=== PATIENT | female | born 1995 | race Caucasian/White ===

== ENCOUNTER 2018-06-20 10:39 | Emergency (ER) | payer SELFPAY ==
[2018-06-20 10:45] VITALS: BP 120/89
--- NOTE | 2018-06-20 10:59 | EDPHY ---
General Time Seen by Provider: 06/20/18 10:59 Narrative: CLINICAL IMPRESSION: Retained tampon ASSESSMENT/PLAN: Patient is a 23-year-old female with no significant medical history who presents to the emergency department with a retained tampon. Patient is afebrile, not toxic appearing and in no acute distress. She has had no constitutional symptoms. Her abdomen is soft and nontender to palpation, no evidence of a surgical abdomen. Pelvic exam was performed, tampon retrieved without difficulty. There was no evidence of vaginal trauma, retained foreign body and I do not suspect infectious process, TOA, toxic shock, PID, or other acute life-threatening processes. The patient has no other questions or concerns. She is new to the area and does not have a primary care provider, referral has been provided to her. Return precautions discussed-patient will return for development of fever, abdominal pain, vaginal discharge or for any other concerning symptom. Patient verbalized understanding and she is in agreement with this plan. ED COURSE: 11:10 a.m.: Case discussed with Dr. Liu CHIEF COMPLAINT: Retained tampon HPI: Patient is a 23-year-old female with no significant medical history who presents to the emergency department with complaints of a retained tampon. Patient place a tampon last night before she went to bed, just prior to arrival she tried to retrieve it when the string broke. She spent an hour trying to retrieve the tampon on her own and was unable to do so. She has had no fever, nausea or vomiting. She denies any abdominal pain. She has no other concerns. PAST MEDICAL HISTORY: Denies Pertinent Past Surgical History: Denies Family History: Not contributory Social History: Smokes marijuana, smokes cigarettes, occasional EtOH, denies other illicit drug use. ROS: A full 10 point review of systems was negative except for those mentioned in HPI. PHYSICAL EXAM: General Appearance: Well developed, well nourished and in no acute distress HEENT: TMs are clear bilaterally no perforation or FB, no injection, no evidence of serous or mucopurulent otitis. Oropharynx clear is no erythema or exudates, no tonsillar hypertrophy or asymmetry. Dentition generally poor. Eyes: PERRLA, no acute vision change, nystagmus, swelling, discharge, pain or photosensitivity. Conjunctiva pink, no pallor or injection Neck: Supple, nontender, no lymphadenopathy, no midline pain, FROM, no meningismus. Respiratory: There are no retractions, lungs are clear to auscultation. Cardiac: Regular rate and rhythm, no murmurs or gallops. Gastrointestinal: Abdomen is soft, nontender, bowel sounds normal, no masses/ hernia, no rigidity, guarding or focal peritoneal findings. Genitourinary: Pelvic exam reveals retained tampon. No evidence of vaginal canal trauma or retained foreign body. Cervix is pink and healthy, mild amount of blood in the vaginal canal. There is no friability and no cervical motion tenderness. Jazlyn Michelle RN. Skin: Warm, dry, no rashes, no nodules on palpation. MEDICAL DECISION MAKING: Patient was seen independently. Secondary supervising physician at time of evaluation was Dr. Liu. Diagnosis: Retained tampon. Summary: See Assessment and Plan for summary of ED visit Clinical lab tests: Not applicable. Independent visualization of images, tracing, or specimens: Not applicable. Decision to obtain medical records or history from someone other than the patient: No Review / Summarize previous medical records: None available Discussed patient with another provider: Dr. Liu Patient Progress: Stable, discharged home. - History Smoking Status: Current every day smoker - Objective Vital Signs: Initial Vital Signs Temperature (C) 36.7 C 06/20/18 10:41 Heart Rate 75 06/20/18 10:41 Respiratory Rate 16 06/20/18 10:41 Blood Pressure 120/89 H 06/20/18 10:41 O2 Sat (%) 95 06/20/18 10:41 O2 Delivery Mode Room Air Allergies/Adverse Reactions: No Known Allergies Allergy (Unverified 06/20/18 10:41) Home Medications: Medication Instructions Recorded NK [No Known Home Meds] 06/20/18 Departure - Departure Disposition: Home, Routine, Self-Care Clinical Impression: Foreign body in vagina Qualifiers: Encounter type: initial encounter Qualified Code(s): T19.2XXA - Foreign body in vulva and vagina, initial encounter Condition: Good Instructions: Vaginal Foreign Body (ED) Additional Instructions: DISCHARGE INSTRUCTIONS FROM YOUR DOCTOR Thank you for visiting our emergency department today. Please keep in mind that discharge from the emergency department does not mean that there is nothing wrong - it simply means that we have not identified an emergency condition that requires further evaluation or treatment in the hospital. You should always plan to follow up with primary care for re-evaluation of your condition in the next 2-3 days. You have been provided a referral to establish care with a primary care provider. People present with illnesses and injuries in different ways, and it is always possible that we have missed something. You may always return for re-evaluation if symptoms worsen or if they are not improving or if you develop new/different symptoms. Again, thank you for choosing our emergency department. We hope that you feel better. Referrals: Irene Carrington MD [Medical Doctor] - 2-3 days, call for appt.
== END 2018-06-20 11:51 | disposition home or self-care (01) ==
LOC: EEVIPCON 10:39
DX: T19.2XXA Foreign body in vulva and vagina, initial encounter (principal)